=== PATIENT | female | born 1960 | race Caucasian/White ===

== ENCOUNTER 2017-01-26 12:15 | Day surgery (SDC) | payer OTHER ==
[~2017-01-26] VITALS: Ht 154.9 cm; Wt 87.0 kg
[~2017-01-26 12:15] MED LIST: GABA600T PO; IBUP-1542 PO; INSU100I14 SC; LANT3I SC; METF500T4 PO; PERCOCET PO
[2017-01-26 13:14] VITALS: Ht 154.9 cm; Wt 87.0 kg
[2017-01-26] MEDS ORDERED: MELO7.5O PO (13:22)
[2017-01-26 15:13] VITALS: BP 127/60; PULSE 82; RESP 12
[2017-01-26] MEDS ORDERED: LIDOCAINE 2% (SDV) 5 ML INJ ONE (15:34)
[2017-01-26] MEDS ORDERED: PROPOFOL 20 ML ONE (15:34)
--- NOTE | 2017-01-29 17:13 | OPR ---
Date/Time of Note Date/Time of Note DATE: 01/26/17 TIME: 17:10 Operative Report Preoperative Diagnosis * Dyspepsia Postoperative Diagnosis Impression: * Mild gastritis. Rule out H. pylori infection. Biopsies obtained * Rule out celiac disease. Random biopsies obtained second portion of the duodenum. * Otherwise normal EGD Plan: * Review pathology as soon as available * Follow-up as previously scheduled . Operation/Procedure Performed * EGD with biopsies Surgeon: MERLY SHARMA MD Estimated Blood Loss: none Specimens * Gastric antrum and body Grafts/Implants * None Complications: None MERLY SHARMA MD Jan 29, 2017 17:12
== END 2017-01-26 18:02 | disposition home or self-care (01) ==
LOC: GIL 12:15
PROVIDERS: ATTEND Internal Medicine Gastroenterology
DX: R10.13 Epigastric pain (principal); K29.70 Gastritis, unspecified, without bleeding; E11.9 Type 2 diabetes mellitus without complications
CPT/HCPCS: 43239; 88305; 88312; Z7610